=== PATIENT | female | born 1995 | race Caucasian/White ===

== ENCOUNTER 2017-10-24 00:54 | Emergency (ER) | payer SELFPAY ==
[~2017-10-24] VITALS: Ht 157.5 cm; Wt 82.0 kg
[~2017-10-24 00:54] MED LIST: ALBUTEROL INHALER
[2017-10-24] MEDS ORDERED: KETOROLAC 30MG/ML VIAL IV STA (06:08)
[2017-10-24] MEDS ORDERED: FAMOTIDINE 20MG/2ML VIAL IV STA (06:08)
[2017-10-24] MEDS ORDERED: MAGNESIUM/ALUMINUM HYDROXIDE/SIMETHICONE 30ML UDC PO STA (06:08)
[2017-10-24] MEDS ORDERED: ONDANSETRON HCL 4MG/2ML VIAL IV STA (06:08)
[2017-10-24] MEDS ORDERED: SODIUM CHLORIDE 0.9% 500 ML IV ONE (06:32)
[2017-10-24 06:49] LABS: BASOPHILS % 0.6 % (0.0-2.0); EOSINOPHILS % 4.2 % (0.0-5.0); HEMATOCRIT. 39.4 % (36.0-48.0); HEMOGLOBIN. 13.5 g/dL (12.0-16.0); LYMPHOCYTES % 18.5 % (20.0-50.0); MEAN CORPUSCULAR HEMOGLOBIN 29.6 pg (28.0-32.0); MEAN CORPUSCULAR VOLUME 86.7 fL (81.0-99.0); MEAN PLATELET VOLUME 9.2 fl (7.4-10.4); MONOCYTES % 10.1 % (2.0-8.0); NEUTROPHILS % 66.6 % (40.0-76.0); PLATELET 243 x1000/uL (130-400); RED BLOOD CELL COUNT 4.55 mill/uL (4.2-5.4); RED CELL DISTRIBUTION WIDTH 13.3 % (11.6-14.6)
[2017-10-24 06:51] LABS: INR 1.1; PROTHROMBIN TIME 11.3 sec (9.4-11.6)
[2017-10-24 06:56] LABS: CARBON DIOXIDE 28 mEq/L (21-32); CHLORIDE 102 mEq/L (98-107)
[2017-10-24 06:57] LABS: HCG SCREEN NEGATIVE
[2017-10-24 08:32] LABS: CLARITY URINE CLEAR (CLEAR); COLOR URINE YELLOW (YELLOW); KETONES URINE 2+ (NEGATIVE); LEUKOCYTE ESTERASE URINE NEGATIVE (NEGATIVE); NITRITE URINE NEGATIVE (NEGATIVE); OCCULT BLOOD URINE 1+ (NEGATIVE); PH URINE 6.5 (4.5-8.0); PROTEIN URINE NEGATIVE (NEGATIVE); UROBILINOGEN URINE 0.2 E.U./dL (0.2-1.0)
[2017-10-24 08:39] VITALS: BP 112/57
== END 2017-10-24 08:41 | disposition home or self-care (01) ==
LOC: ER 00:54
DX: R10.11 Right upper quadrant pain (principal); R19.7 Diarrhea, unspecified; R50.9 Fever, unspecified; R11.2 Nausea with vomiting, unspecified; J45.909 Unspecified asthma, uncomplicated
CPT/HCPCS: 36415; 76700; 80053; 81001; 83690; 84703; 85025; 85610; 96374; 96375; 99285; J1885; J2405; J3490; Z7610; J7030

== ENCOUNTER 2018-10-16 09:43 | Emergency (ER) | payer SELFPAY ==
[~2018-10-16] VITALS: Ht 157.5 cm; Wt 82.0 kg
[2018-10-16] MEDS ORDERED: IBUPROFEN 600MG TABLET PO ONE (11:15)
[2018-10-16 12:04] VITALS: BP 129/72
== END 2018-10-16 12:25 | disposition home or self-care (01) ==
LOC: ER 10:41
DX: S93.402A Sprain of unspecified ligament of left ankle, initial encounter (principal); J45.909 Unspecified asthma, uncomplicated; X50.1XXA Overexertion from prolonged static or awkward postures, initial encounter; Y93.89 Activity, other specified; Y92.89 Other specified places as the place of occurrence of the external cause
CPT/HCPCS: 73610; 73630; 81025; 99283